=== PATIENT | female | born 1955 | race Caucasian/White ===

== ENCOUNTER 2025-02-20 04:34 | Emergency (ER) | payer MEDICARE, SELFPAY ==
[2025-02-20 04:37] VITALS: BP 100/68
[2025-02-20 05:45] LABS: Hematocrit 43.0 % (37.0-47.0); Hemoglobin 14.8 g/dL (12.0-16.0); Mean Corp Hgb Conc. 34.4 g/dL (33.0-37.0); Mean Corpuscular Volume 92.5 fL (81.0-99.0); Nucleated Red Blood Cells % 0 %; Platelet Count 249 10^3/uL (130-400); Red Cell Dist. Width 13.2 % (11.5-14.5)
[2025-02-20 05:56] LABS: INR 0.86; PT 12.2 Sec (11.4-14.6)
[2025-02-20 06:02] VITALS: BP 112/72; BMI 28.9
--- NOTE | 2025-02-20 06:02 | ED.GENMED ---
History of Present Illness
General
Chief Complaint: Breathing Problem
Time Seen by Provider: 02/20/25 06:02
History of Present Illness
History of Present Illness:
PAST MEDICAL HISTORY AND REVIEW OF OLD RECORDS
- Former smoker, high blood pressure, CAD/CO
Note:
CHIEF COMPLAINT(S)
Possible rat poison exposure and associated symptoms.
HISTORY OF PRESENT ILLNESS
The patient is a 69-year-old female who presented to the emergency department due to concerns about potential rat poison exposure experienced yesterday. 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
accidentally came into contact with granules. She did not use gloves initially and later realized that the granules may have become airborne while she was sweeping. The patient subsequently developed profuse vomiting and has been feeling unwell with
persistent nausea, though she feels some relief after vomiting. She reported exposure occurred around 2 PM yesterday and that she washed her hands after handling the poison. At presentation, she continues to feel nauseated. She has had no issues
with bleeding since the incident, and initial blood work, including bleeding parameters, appear normal. The patient also reported having severe low back pain before the incident, for which she almost sought medical attention. The pain is described
as intense, located primarily in the lower back, affecting her ability to move. Her assisted her at home due to the severity of the pain.
ADDITIONAL HISTORY OBTAINED FROM SOURCES OTHER THAN THE PATIENT
Per the patient�s report, her was in contact with the hospital regarding the type of rat poison involved, though the specific details of the poison remain unclear.
REVIEW OF SYSTEMS
- Gastrointestinal: Profuse vomiting since accidental exposure to rodent poison, persistent nausea.
- Musculoskeletal: Severe low back pain affecting mobility.
PHYSICAL EXAM
General: Alert, no acute distress.
Skin: Warm, dry.
Head: Normocephalic, atraumatic.
Neck: Supple, trachea midline.
Eye, Ears, Nose, Mouth, and Throat: Oral mucosa moist.
Cardiovascular: Normal peripheral perfusion, No edema. Regular rhythm.
Respiratory: Respirations are non-labored. Lung sounds clear bilaterally. No wheeze.
Gastrointestinal: Abdomen nondistended, nontender
Back: Severe pain in the lower back noted with decreased active range of motion due to the pain
Musculoskeletal: Limited ROM due to pain, otherwise normal strength noted.
Neurological: Alert and oriented to person, place, time, and situation, No focal neurological deficit observed.
Psychiatric: Suggestion of some alcohol exposure
PROBLEM LIST
- Acute: Suspected rat poisoning with nausea and vomiting, severe low back pain.
PLAN
- Administer intravenous fluids and anti-nausea medication.
- Provide Toradol for relief of back pain.
- Order an X-ray of the lumbar spine to evaluate the cause of the back pain.
- Follow up on any additional communication from the or hospital regarding the specifics of the rat poison.
- Monitor for further symptoms of poisoning, including any bleeding issues.
DIFFERENTIAL DIAGNOSIS
The Differential Diagnosis includes, in no particular order and is not limited to:
1. Acute chemical exposure reaction
2. Viral gastroenteritis
3. Food poisoning
4. Medication toxicity
5. Anxiety reaction
6. Lumbar strain or sprain
7. Vertebral fracture
8. Spinal disc herniation
9. Gastroesophageal reflux disease
10. Peptic ulcer disease
RADIOLOGY
- X-ray of lumbar spine obtained which shows degenerative disease
LABS
- White count and hemoglobin are normal, INR 0.86, bicarb 21, sodium 146, calcium 10.4, alcohol 226, MCV 93
UPDATE
-SUMMARY OF ENCOUNTER
The patient, a 69-year-old female, presented to the emergency department with concerns of potential rat poison exposure after handling and cleaning rodent poison granules. She experienced profuse vomiting and persistent nausea following the
exposure. Additionally, she reported severe lower back pain. Upon evaluation, her blood alcohol level was found to be significantly elevated at 220 mg/dL. She was administered intravenous fluids, anti-nausea medication, and ketorolac for pain
relief. An X-ray revealed degenerative changes in the lumbar spine but no acute findings. Her blood pressure readings varied, with some readings being low.
ASSESSMENT
The patients symptoms were likely related to acute chemical exposure reaction and possibly exacerbated by alcohol consumption. No major issues were identified from the suspected rat poison exposure. Her back pain could be attributed to degenerative
changes and potential muscle strain or inflammation.
EMERGENCY TREATMENTS ADMINISTERED
The patient received intravenous fluids, ketorolac, and anti-nausea medication.
PLAN
Continue to monitor the patient for any symptoms related to rat poison exposure and ensure adequate hydration. Educate the patient on limiting alcohol intake and monitoring blood pressure at home.
INDEPENDENT REVIEW OF LABS AND INTERPRETATION OF TESTS
My independent review of the X-ray shows degenerative changes in the lumbar spine with no acute findings. Blood alcohol level was significantly elevated at 220 mg/dL.
PATIENT EDUCATION AND COUNSELING
The patient was advised on the potential effects of alcohol consumption on her health and the importance of moderating intake. Counseling was provided regarding the degenerative changes in the spine being a likely cause of her back pain. The need
for follow-up with her primary care provider for further evaluation and management was discussed.
FOLLOW-UP INSTRUCTIONS
The patient is advised to consult her primary care physician regarding the management of her back pain and monitoring of blood pressure. She should arrange for safe transportation home.
MEDICATION RECONCILIATION
The patient received intravenous fluids, ketorolac, and anti-nausea medication during the visit.
MEDICAL DECISION MAKING
- Complexity of Data Reviewed:
Chronic conditions affecting care include potential rat poison exposure, alcohol use, and musculoskeletal pain. Differential diagnosis considerations are acute chemical exposure reaction, viral gastroenteritis, food poisoning, medication toxicity,
anxiety reaction, lumbar strain or sprain, vertebral fracture, spinal disc herniation, gastroesophageal reflux disease, and peptic ulcer disease.
- Data:
Category 1
- My independent interpretation of the X-ray shows degenerative changes in the lumbar spine with no acute pathology.
Category 2
- Clinical information was obtained from an independent historian regarding the type of rat poison exposure from the patients .
- Risk: Prescription medication management was initiated (ketorolac for pain). Observation was considered, but the patient is deemed safe for outpatient management with follow-up due to stable work-up results and controlled symptoms.
DIAGNOSIS
1. Acute chemical exposure reaction (T60.3X1A)
2. Alcohol intoxication (F10.92)
3. Low back pain due to degenerative changes (M54.5)
Past History
Past History
ED Past Medical History: HTN and Hypercholesterolemia
Social History
Tobacco: Former smoker (Quit one month ago but only social smoker)
Living: with family
Phy Exam
Physical Exam
Physical Exam:
See HPI
Scores
Heart Failure Risk
Heart Failure Risk Score: Not Applicable
Course
Orders/Labs/Results
Orders:
Orders
02/20/25 05:26
Alcohol Urgent
Complete Blood Count/With Diff Urgent
Comprehensive Metabolic Panel Urgent
Prothrombin Time Urgent
02/20/25 06:12
0.9% Sodium Chloride 1000 ml [Nss] 1,000 ml IV BOLUS
Ketorolac [Toradol] 15 mg IV NOW STA
Ondansetron Injectable [Zofran] 4 mg IV NOW STA
CR Lumbar Spine Comp Min 4 Vw* Urgent
Comment:
Reason For Exam: severe pain
Abnormal Lab Results
02/20/25
05:26
MCH 31.8 H pg
(27.0-31.0)
Sodium 146 H mmol/L
(135-145)
Chloride 110 H mmol/L
(98-107)
Carbon Dioxide 21 L mmol/L
(22-30)
BUN 21 H mg/dl
(7-17)
Glucose 111 H mg/dl
(70-99)
Calcium 10.4 H mg/dl
(8.4-10.2)
ALT 50 H U/L
(0-35)
02/20/25 05:26
02/20/25 05:26
Vital Signs
Initial and Last Documented VS:
Initial Vital Signs
Temp Pulse Resp BP Pulse Ox
37.0 C 88 24 100/68 93
02/20/25 04:37 02/20/25 04:37 02/20/25 04:37 02/20/25 04:37 02/20/25 04:37
Last Documented Vital Signs
Temp Pulse Resp BP Pulse Ox
37.0 C 84 14 95/68 93
02/20/25 04:37 02/20/25 06:30 02/20/25 06:30 02/20/25 07:30 02/20/25 07:00
*Pulse Oximetry
SaO2: 93
Oxygen Mode of Delivery: Room air
Patient hypoxic: no
*Critical Care Note
Total Time (30-74mins, 75-104mins- exclusive of procedures): Not Applicable
ED Attending Note
-
Portions of this chart may have been created with voice recognition software.� Occasional wrong word or��sound alike� substitutions may have occurred due to the inherent limitations of voice recognition software.
Discharge Plan
Departure
Patient Disposition: Home (Routine Discharge)
Date of Disposition: 02/20/25
Time of Disposition: 08:35
Patient with high blood pressure during this ER visit?: Yes
Discharge Problem:
Chemical exposure
Instructions: Low back pain in adults
Prescriptions:
No Action
flaxseed oil 1,000 MG capsule
2 tab PO DAILY
Patient Comments:
2-3 capsules daily
coenzyme Q10 [CoQ-10] 30 MG capsule
2 tab PO HS
multivitamin [Daily Multiple] 1 EACH tablet
1 ea PO DAILY
psyllium husk [Metamucil] 0.52 GM capsule
1 tsp PO DAILY
Probiotic 1 EACH capsule
1 ea PO DAILY
milk thistle seed extract 140 MG tablet
3 capsules DAILY
Patient Comments:
unsure of dose-2-3 capsules daily
Green Tea & Acai
1 tab DAILY
aspirin 81 MG tablet,chewable
81 mg PO DAILY
Patient Comments:
PT STATES SHE TAKES EVERY OTHER DAY BECAUSE SHE FORGETS ALOT
clopidogrel 75 MG tablet
75 mg PO DAILY Qty: 90 3RF
famotidine 20 MG tablet
20 mg PO DAILY Qty: 90 3RF
simvastatin 20 MG tablet
20 mg PO HS Qty: 90 3RF
nitroglycerin 0.4 MG tablet, sublingual
0.4 mg sublingual [id number] PRN (Reason: Chest pain) Qty: 30 2RF
Rx Instructions:
take one tablet under tongue every 5 min x 3 as needed for chest pain.
If no relief, then go to ER.
lisinopril 2.5 MG tablet
2.5 mg PO DAILY Qty: 90 3RF
metoprolol tartrate 25 MG tablet
25 mg PO BID Qty: 180 3RF
Referrals:
Dimas Earl MD [Family Provider, Family Practice]
Activity Restrictions/Additional Instructions:
INR is normal (coagulation number that can be seen in certain rat poison). Other basic blood work is normal. X-ray of the lumbar spine shows degenerative changes. We gave you Toradol along with Zofran and fluids today. Your blood pressure has
been somewhat low and I recommend you follow-up your primary care doctor. Return here if worse or other concerns.
Interventions
Interventions:
*Risk Screen - Suicide Last Done: 02/20/25 04:37
*General Assessment Last Done: 02/20/25 04:40
*Neglect/Abuse Screening Last Done: 02/20/25 06:04
*ED- Fall Risk Assessment Last Done: 02/20/25 04:40
*ED COVID-19 Vaccine History Last Done: 02/20/25 04:40
ED- Cardiac Assessment Last Done: 02/20/25 06:04
ED- Pulmonary Assessment Last Done: 02/20/25 06:04
Discharge Date and Time
Print Language: GREEK
[2025-02-20 06:08] LABS: ALT (SGPT) 50 U/L (0-35); AST (SGOT) 35 U/L (14-36); Albumin 4.8 g/dl (3.5-5.0); Alkaline Phosphatase 63 U/L (38-126); Blood Urea Nitrogen 21 mg/dl (7-17); Calcium 10.4 mg/dl (8.4-10.2); Carbon Dioxide 21 mmol/L (22-30); Chloride 110 mmol/L (98-107); Estimated Creatinine Clearance 62 ml/min; Glucose 111 mg/dl (70-99); Potassium 4.1 mmol/L (3.5-5.1); Sodium 146 mmol/L (135-145); Total Protein 7.7 g/dl (6.3-8.2); eGFR > 60.00
[2025-02-20] MEDS: NSS 1000 IV (06:27)
[2025-02-20] MEDS: ZOFRAN 4 MG IV (06:28)
[2025-02-20] MEDS: TORADOL 15 MG IV (06:29)
[2025-02-20 07:00] VITALS: BP 95/67
[2025-02-20 07:30] VITALS: BP 95/68
[2025-02-20 08:32] VITALS: BP 96/66
== END 2025-02-20 10:33 | disposition home or self-care (01) ==
LOC: EMR 04:34
PROVIDERS: Emergency Medicine; EMERGENCY PHYSICIAN Emergency Medicine; FAMILY PHYSICIAN Family Medicine
DX: T65.891A Toxic effect of other specified substances, accidental (unintentional), initial encounter (principal); R11.0 Nausea; I10 Essential (primary) hypertension; E78.00 Pure hypercholesterolemia, unspecified; F10.129 Alcohol abuse with intoxication, unspecified; Y90.7 Blood alcohol level of 200-239 mg/100 ml; M54.50 Low back pain, unspecified; Z87.891 Personal history of nicotine dependence; I25.10 Atherosclerotic heart disease of native coronary artery without angina pectoris
CPT/HCPCS: 96374; 96375; 96361; 99284; 72110; 80053; 82077; 85025; 85610

== ENCOUNTER → 2025-05-30 16:00 | Outpatient (REF) | payer MEDICARE, SELFPAY | LOC: RCS 16:00 | PROVIDERS: ATTENDING PHYSICIAN Internal Medicine Cardiovascular Disease; FAMILY PHYSICIAN Family Medicine; OTHER PHYSICIAN Internal Medicine Interventional Cardiology | DX: I51.7 Cardiomegaly (principal) | CPT/HCPCS: 93306 ==